=== PATIENT | female | born 1965 | race Two or more races ===

== ENCOUNTER 2019-02-18 05:54 | Inpatient (IN) | payer BC ==
[2019-02-18] VITALS (22 sets, daily range): BP systolic 104–121; BP diastolic 62–81; PULSE 85–110; RESP 12–22; Ht 149.9 cm; Wt 47.7 kg
[~2019-02-18] VITALS: Ht 149.9 cm; Wt 47.7 kg
--- NOTE | 2019-02-18 07:47 | HPN ---
Date/Time of Note Date/Time of Note DATE: 02/18/19 TIME: 07:47 Interval H&P Admission Note Pt. seen H&P reviewed: No system changes JOE SIDDIQI DPM Feb 18, 2019 07:47
--- NOTE | 2019-02-18 07:49 | PREAC ---
Date/Time of Note Date/Time of Note DATE: 02/18/19 TIME: 07:47 Anesthesia Eval and Record Evaluation Time Pre-Procedure Interview DATE: 02/18/19 TIME: 07:47 Age 53 Sex female NPO: 8 hrs Preoperative diagnosis ankle fracture Planned procedure fixator external Past Medical History Past Medical History: Includes Musculoskeletal: Other (hx breast cancer ) Surgery & Anesthesia Issues No known issue Meds Anticoagulation: No Beta Rashard within 24 hr: No Reason Beta Rashard not given: Pt. not on B-Rashard Meds reviewed: Yes Allergies Allergies Reviewed: Yes Labs/Studies Labs Reviewed: Reviewed by anesthesiologist Result Diagram: 02/18/1923 02/18/1923 Laboratory Tests 02/18/19 06:23 test: N/A Pre-procedure Exam Last vitals Vital Signs Date Temp Pulse Resp B/P (MAP) Pulse Ox O2 O2 Flow FiO2 Time Delivery Rate 02/18/19 98.5 85 14 119/81 98 Room Air 06:10 (94) Airway: Adequate mouth opening, Adequate thyromental dist Mallampati: Mallampati IV Teeth: Normal Lung: Normal Heart: Normal ASA Physical Status ASA physical status: 2 Emergency: None Pre-operative Attestations Prior to commencing anesthesia and surgery, the patient was re-evaluated, there was verification of: *The patient's identity *The results of appropriate recent lab work and preoperative vital signs *The above evaluation not changing prior to induction *Anesthetic plan, risk benefits, alternative and complications discussed with patient/family; questions answered; patient/family understands, accepts and wishes to proceed. OZZY BAUGH DO Feb 18, 2019 07:49
[2019-02-18] MEDS ORDERED: HYDROmorphONE 1 MG/5 ML IV SYRINGE IV PRN ×2 (08:00)
[2019-02-18] MEDS ORDERED: PROPOFOL 20 ML ONE (08:06)
[2019-02-18] MEDS ORDERED: MIDAZOLAM 1 MG/ML 2 ML INJ ONE (08:08)
[2019-02-18] MEDS ORDERED: LIDOCAINE 1% (MDV) 20 ML INJ ONE (08:08)
[2019-02-18] MEDS ORDERED: EPINEPHrine 0.1 MG/ML SYG ONE (08:27)
[2019-02-18] MEDS ORDERED: CEFAZOLIN 1 GM INJ ONE (08:29)
[2019-02-18] MEDS ORDERED: ONDANSETRON 4 MG INJ ONE ×2 (08:29→11:14)
[2019-02-18] MEDS ORDERED: DEXAMETHASONE 4 MG/ML 5 ML INJ ONE (08:42)
[2019-02-18] MEDS ORDERED: FAMOTIDINE 20 MG INJ ONE (08:43)
[2019-02-18] MEDS ORDERED: POLYMYXIN/BACITRACIN 1L IRRIG ONE (09:20)
[2019-02-18] MEDS ORDERED: ROPIVACAINE 0.5 % 30 ML VIAL ONE (10:18)
[2019-02-18] MEDS ORDERED: NEOMYC/POLYMYX/BACIT 30 GM OINT ONE (10:23)
[2019-02-18] MEDS ORDERED: ROPIVACAINE 0.2% 20 ML VIAL ONE (10:45)
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
--- NOTE | 2019-02-18 11:07 | PAC ---
Date/Time of Note Date/Time of Note DATE: 02/18/19 TIME: 11:07 Post-Anesthesia Notes Post-Anesthesia Note Last documented vital signs Vital Signs Date Temp Pulse Resp B/P (MAP) Pulse Ox O2 O2 Flow FiO2 Time Delivery Rate 02/18/19 98 81 16 121/62 98 Room Air 1107 Activity: WNL Respiratory function: WNL Cardiovascular function: WNL Mental status: Baseline Pain reasonably controlled: Yes Hydration appropriate: Yes Nausea/Vomiting absent: Yes OZZY BAUGH DO Feb 18, 2019 11:07
[2019-02-18] MEDS ORDERED: ONDANSETRON 4 MG INJ IV PRN ×2 (11:30→12:00)
--- NOTE | 2019-02-18 11:44 | CONS ---
Assessment/Plan Assessment/Plan Hospital Course (Demo Recall) Patient is a female with a significant past medical history of deformed right foot, breast cancer treated with Arimadex and peripheral neuropathy secondary to deformed foot who presents to [facility] for elective right foot surgery. Patient received external fixation and surgical correction of right foot deformity as well as Achilles tendon lengthening. Patient will be kept inpatient for the time being, currently patient states that other than her right foot pain she has absolutely no complaints. Patient denies nausea, vomiting, headache, abdominal pain, chest pain, shortness of breath. Objective Physical exam General: Patient is laying in bed and answers questions appropriately Mentation: Patient is alert and oriented 4, Head: Normocephalic atraumatic Eyes: EOMI, pupils reactive to light Neck: Supple, nontender, midline Respiratory: Clear to auscultation bilaterally Cardiovascular: regular rate, no obvious murmurs Gastrointestinal: non-tender to palpation, bowel sounds heard. Neurological: Moves all extremities spontaneously Skin: Right foot, external fixation, clean Assessment and plan Right foot calcaneal deformity status post external fixation and Achilles tendon healing -Podiatry to manage -External fixation -Due to questionable pus seen on surgery, will start antibiotics, Vanco and cefepime while in house -Pain management History of breast cancer status post bilateral mastectomy, -On Arimidex -Continue as tolerated Disposition -Continue inpatient care for external fixation, continue IV antibiotics for now, podiatry recommendations appreciated. Consultation Date/Type/Reason Admit Date/Time Date/Time of Note DATE: 02/18/19 TIME: 11:43 Past Medical History Medications Current Medications Hydromorphone HCl (Dilaudid) 0.2 mg PACU PRN IV MILD PAIN 1-3; Start 02/18/19 at 08:00; Stop 02/18/19 at 14:00 Hydromorphone HCl (Dilaudid) 0.4 mg PACU PRN IV MOD PAIN 4-6 Last administered on 02/18/19at 11:26; Admin Dose 0.4 MG; Start 02/18/19 at 08:00; Stop 02/18/19 at 14:00 Ondansetron HCl (Zofran Inj) 4 mg PACU ORDER PRN IV NAUSEA/VOMITING Last administered on 02/18/19at 11:26; Admin Dose 4 MG; Start 02/18/19 at 11:30; Stop 02/18/19 at 19:00 IV Flush (NS 3 ml) 3 ml PER PROTOCOL IV ; Start 02/18/19 at 12:00 Ondansetron HCl (Zofran Inj) 4 mg Q6H PRN IV NAUSEA/VOMITING; Start 02/18/19 at 12:00 Acetaminophen (Tylenol Tab) 650 mg Q6H PRN PO .PAIN 1-3 OR TEMP; Start 02/18/19 at 12:00 Oxycodone/ Acetaminophen (Percocet (5/ 325)) 1 tab Q6H PRN PO .PAINS 4-6; Start 02/18/19 at 12:00 Morphine Sulfate (morphine) 4 mg Q4H PRN IV .PAIN 7-10; Start 02/18/19 at 12:00 Docusate Sodium (Colace) 100 mg Q12H PO ; Start 02/18/19 at 12:00; Status UNV Anastrozole (Arimidex) 1 mg DAILY PO ; Start 02/19/19 at 09:00; Status UNV Gabapentin (Neurontin) 300 mg TID PO ; Start 02/18/19 at 13:00 Vancomycin HCl (Vanco Iv Per Pharmacy) VANCOMYCIN PER PHARMACY PER PROTOCOL XX ; Start 02/18/19 at 12:00; Status UNV Cefepime HCl 50 ml @ 100 mls/hr Q12 IVPB ; Start 02/18/19 at 21:00; Status UNV Allergies: Coded Allergies: No Known Allergy (Unverified , 02/18/19) Social History Smoking Status: Never smoker Exam/Review of Systems Exam Vitals Vital Signs Date Temp Pulse Resp B/P (MAP) Pulse Ox O2 O2 Flow FiO2 Time Delivery Rate 02/18/19 102 12 117/68 97 Room Air 11:26 (84) 02/18/19 98.4 11:17 Results Result Diagram: 02/18/19 0623 02/18/19 0623 Results 24hrs Laboratory Tests Test 02/18/19 06:23 White Blood Count 8.4 Red Blood Count 4.48 Hemoglobin 12.6 Hematocrit 38.2 Mean Corpuscular Volume 85.3 Mean Corpuscular Hemoglobin 28.1 L Mean Corpuscular Hemoglobin Concent 33.0 Red Cell Distribution Width 13.1 Platelet Count 296 Mean Platelet Volume 9.9 Immature Granulocytes % 0.400 Neutrophils % 57.1 Lymphocytes % 26.7 Monocytes % 7.9 Eosinophils % 7.4 H Basophils % 0.5 Nucleated Red Blood Cells % 0.0 Immature Granulocytes # 0.030 Neutrophils # 4.8 Lymphocytes # 2.2 Monocytes # 0.7 Eosinophils # 0.6 H Basophils # 0.0 Nucleated Red Blood Cells # 0.0 Prothrombin Time 11.9 Prothrombin Time Ratio 0.9 INR International Normalized Ratio 0.87 Activated Partial Thromboplast Time 28.6 Sodium Level 142 Potassium Level 3.9 Chloride Level 106 Carbon Dioxide Level 26 Anion Gap 10 Blood Urea Nitrogen 14 Creatinine 0.59 Est Glomerular Filtrat Rate mL/min > 60 Glucose Level 100 Calcium Level 9.2 Total Bilirubin 0.4 Direct Bilirubin 0.00 Indirect Bilirubin 0.4 Aspartate Amino Transf (AST/SGOT) 37 Alanine Aminotransferase (ALT/SGPT) 26 Alkaline Phosphatase 108 Total Protein 8.0 Albumin 4.2 Globulin 3.80 H Albumin/Globulin Ratio 1.10 Medications Medication Current Medications Hydromorphone HCl (Dilaudid) 0.2 mg PACU PRN IV MILD PAIN 1-3; Start 02/18/19 at 08:00; Stop 02/18/19 at 14:00 Hydromorphone HCl (Dilaudid) 0.4 mg PACU PRN IV MOD PAIN 4-6 Last administered on 02/18/19at 11:26; Admin Dose 0.4 MG; Start 02/18/19 at 08:00; Stop 02/18/19 at 14:00 Ondansetron HCl (Zofran Inj) 4 mg PACU ORDER PRN IV NAUSEA/VOMITING Last administered on 02/18/19at 11:26; Admin Dose 4 MG; Start 02/18/19 at 11:30; Stop 02/18/19 at 19:00 IV Flush (NS 3 ml) 3 ml PER PROTOCOL IV ; Start 02/18/19 at 12:00 Ondansetron HCl (Zofran Inj) 4 mg Q6H PRN IV NAUSEA/VOMITING; Start 02/18/19 at 12:00 Acetaminophen (Tylenol Tab) 650 mg Q6H PRN PO .PAIN 1-3 OR TEMP; Start 02/18/19 at 12:00 Oxycodone/ Acetaminophen (Percocet (5/ 325)) 1 tab Q6H PRN PO .PAINS 4-6; Start 02/18/19 at 12:00 Morphine Sulfate (morphine) 4 mg Q4H PRN IV .PAIN 7-10; Start 02/18/19 at 12:00 Docusate Sodium (Colace) 100 mg Q12H PO ; Start 02/18/19 at 12:00; Status UNV Anastrozole (Arimidex) 1 mg DAILY PO ; Start 02/19/19 at 09:00; Status UNV Gabapentin (Neurontin) 300 mg TID PO ; Start 02/18/19 at 13:00 Vancomycin HCl (Vanco Iv Per Pharmacy) VANCOMYCIN PER PHARMACY PER PROTOCOL XX ; Start 02/18/19 at 12:00; Status UNV Cefepime HCl 50 ml @ 100 mls/hr Q12 IVPB ; Start 02/18/19 at 21:00; Status UNV ARTUR GARAY Feb 18, 2019 11:44
[2019-02-18] MEDS ORDERED: ACETAMINOPHEN 325 MG TAB PO PRN (12:00)
[2019-02-18] MEDS ORDERED: NACL 0.9% 3 ML SYG IV SCH (12:00)
[2019-02-18] MEDS ORDERED: VANCOMYCIN IV PER PHARMACY XX SCH (12:00)
[2019-02-18] MEDS ORDERED: VANCOMYCIN 1 GM 250 ML IVPB SCH (14:00)
[2019-02-18] MEDS: GABAPENTIN 300 MG CAP PO SCH ×2 (14:06→20:21)
[2019-02-18] MEDS: DOCUSATE SODIUM 100 MG CAP PO SCH ×2 (14:07→20:20)
[2019-02-18] MEDS: morphine 4 MG/ML VIAL IV PRN (19:45)
[2019-02-18] MEDS: CEFEPIME 1GM/50 ML (PMX) 50 ML IVPB SCH (20:21)
[2019-02-19] MEDS: VANCOMYCIN 750 MG (PMX) 250 ML IVPB SCH ×2 (01:31→13:25)
[2019-02-19 02:09] VITALS: BP 104/68; PULSE 82; PULSE 90; RESP 18
[2019-02-19 08:07] VITALS: BP 92/56; PULSE 85; RESP 18
[2019-02-19] MEDS: DOCUSATE SODIUM 100 MG CAP PO SCH ×2 (08:59→21:38)
[2019-02-19] MEDS: GABAPENTIN 300 MG CAP PO SCH ×3 (08:59→21:38)
[2019-02-19] MEDS: CEFEPIME 1GM/50 ML (PMX) 50 ML IVPB SCH ×2 (09:00→21:38)
[2019-02-19] MEDS: ANASTROZOLE 1 MG TAB PO SCH (09:20)
--- NOTE | 2019-02-19 11:21 | PN ---
Date/Time of Note Date/Time of Note DATE: 02/19/19 TIME: 11:20 Objective Vitals Vital Signs Date Temp Pulse Resp B/P (MAP) Pulse Ox O2 O2 Flow FiO2 Time Delivery Rate 02/19/19 97.9 85 18 92/56 (68) 99 08:07 02/18/19 Room Air 12:01 Intake and Output 02/18/19 02/18/19 02/19/19 1515:00 23:00 07:00 IntakeIntake Total 2000 ml 1140 ml OutputOutput Total 605 ml 500 ml BalanceBalance 1395 ml 640 ml Results Result Diagram: 02/19/19 0543 02/19/19 0543 Medications Medications Current Medications IV Flush (NS 3 ml) 3 ml PER PROTOCOL IV ; Start 02/18/19 at 12:00 Ondansetron HCl (Zofran Inj) 4 mg Q6H PRN IV NAUSEA/VOMITING; Start 02/18/19 at 12:00 Acetaminophen (Tylenol Tab) 650 mg Q6H PRN PO .PAIN 1-3 OR TEMP; Start 02/18/19 at 12:00 Oxycodone/ Acetaminophen (Percocet (5/ 325)) 1 tab Q6H PRN PO .PAINS 4-6; Start 02/18/19 at 12:00 Morphine Sulfate (morphine) 4 mg Q4H PRN IV .PAIN 7-10 Last administered on 02/18/19at 19:45; Admin Dose 4 MG; Start 02/18/19 at 12:00 Docusate Sodium (Colace) 100 mg Q12 PO Last administered on 02/19/19at 08:59; Admin Dose 100 MG; Start 02/18/19 at 12:00 Anastrozole (Arimidex) 1 mg DAILY PO Last administered on 02/19/19at 09:20; Admin Dose 1 MG; Start 02/19/19 at 09:00 Gabapentin (Neurontin) 300 mg TID PO Last administered on 02/19/19at 08:59; Admin Dose 300 MG; Start 02/18/19 at 13:00 Vancomycin HCl (Vanco Iv Per Pharmacy) VANCOMYCIN PER PHARMACY PER PROTOCOL XX ; Start 02/18/19 at 12:00 Cefepime HCl 50 ml @ 100 mls/hr Q12 IVPB Last administered on 02/19/19at 09:00; Admin Dose 100 MLS/HR; Start 02/18/19 at 21:00 Vancomycin/Sodium Chloride 250 ml @ 125 mls/hr Q12H IVPB Last administered on 02/19/19at 01:31; Admin Dose 125 MLS/HR; Start 02/19/19 at 02:00 Miscellaneous Information (*Rx Drug Level Order Reminder*) VANCO TROUGH @ 0,100 ON... 0100 ONCE XX ; Start 02/20/19 at 01:00; Stop 02/20/19 at 01:01 VTE Prophylaxis Risk score (from [facility])>0 risk: 7 SCD applied (from [facility]): Yes Lines/Catheters IV Catheter Type: Le[place] in Place: No Assessment/Plan Hospital Course Subjective No acute complaints, has some foot surgical site pain otherwise feels well Objective Physical exam General: Patient is laying in bed and answers questions appropriately Mentation: Patient is alert and oriented 4, Head: Normocephalic atraumatic Eyes: EOMI, pupils reactive to light Neck: Supple, nontender, midline Respiratory: Clear to auscultation bilaterally Cardiovascular: regular rate, no obvious murmurs Gastrointestinal: non-tender to palpation, bowel sounds heard. Neurological: Moves all extremities spontaneously Skin: Right foot, external fixation, clean Assessment and plan Right foot calcaneal deformity status post external fixation and Achilles tendon healing -Podiatry to manage -External fixation -Due to questionable pus seen on surgery, will start antibiotics, Vanco and cefepime while in house -Pain management Leukocytosis -Likely secondary to inflammation secondary to surgery, no other signs of active infection, continue IV antibiotics. History of breast cancer status post bilateral mastectomy, -On Arimidex -Continue as tolerated Disposition -Continue inpatient care for external fixation, continue IV antibiotics for now, podiatry recommendations appreciated. ARTUR GARAY Feb 19, 2019 11:21
[2019-02-19] MEDS: OXYCODONE/ACETAMINOPHEN (5/325) TAB PO PRN (13:32)
[2019-02-19] MEDS: morphine 4 MG/ML VIAL IV PRN ×2 (15:35→20:00)
[2019-02-19 16:47] VITALS: BP 106/71; PULSE 67; RESP 18
[2019-02-19 18:26] VITALS: BP 121/84; PULSE 87; RESP 18
[2019-02-19 20:16] VITALS: BP 137/73; PULSE 83; RESP 16
[2019-02-20] MEDS: morphine 4 MG/ML VIAL IV PRN ×2 (01:27→20:41)
[2019-02-20 02:03] VITALS: BP 139/70; PULSE 84; RESP 18
[2019-02-20] MEDS: VANCOMYCIN 750 MG (PMX) 250 ML IVPB SCH (02:17)
[2019-02-20 07:46] VITALS: BP 145/67; PULSE 87; RESP 18
[2019-02-20] MEDS: CEFEPIME 1GM/50 ML (PMX) 50 ML IVPB SCH (09:30)
[2019-02-20] MEDS: GABAPENTIN 300 MG CAP PO SCH ×3 (09:41→20:41)
[2019-02-20] MEDS: DOCUSATE SODIUM 100 MG CAP PO SCH ×2 (09:41→20:41)
[2019-02-20] MEDS: ANASTROZOLE 1 MG TAB PO SCH (09:43)
[2019-02-20] MEDS: OXYCODONE/ACETAMINOPHEN (5/325) TAB PO PRN ×2 (09:44→15:08)
[2019-02-20] MEDS ORDERED: VANCOMYCIN 750 MG (PMX) 250 ML IVPB SCH (10:00)
[2019-02-20] MEDS: CEFTRIAXONE 1 GM/50 ML (PMX) 50 ML IVPB SCH (13:33)
[2019-02-20 13:49] VITALS: BP 138/76; PULSE 86; RESP 18
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
[2019-02-20 20:24] VITALS: BP 139/81; PULSE 96; RESP 18
[2019-02-21 02:13] VITALS: BP 123/73; PULSE 103; RESP 18
[2019-02-21] MEDS: OXYCODONE/ACETAMINOPHEN (5/325) TAB PO PRN ×2 (06:48→12:49)
[2019-02-21 07:55] VITALS: BP 130/67; PULSE 88; RESP 18
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
[2019-02-21] MEDS: GABAPENTIN 300 MG CAP PO SCH ×3 (09:19→22:03)
[2019-02-21] MEDS: DOCUSATE SODIUM 100 MG CAP PO SCH ×2 (09:19→22:03)
[2019-02-21] MEDS: ANASTROZOLE 1 MG TAB PO SCH (09:21)
[2019-02-21] MEDS: CEFTRIAXONE 1 GM/50 ML (PMX) 50 ML IVPB SCH (14:12)
[2019-02-21 14:14] VITALS: BP 138/78; PULSE 88; RESP 18
[2019-02-21] MEDS: morphine 4 MG/ML VIAL IV PRN (19:30)
[2019-02-21 20:30] VITALS: BP 137/99; PULSE 91; RESP 18
[2019-02-22 02:45] VITALS: BP 132/90; PULSE 89; RESP 18
[2019-02-22] MEDS: OXYCODONE/ACETAMINOPHEN (5/325) TAB PO PRN ×3 (05:20→18:07)
[2019-02-22 07:53] VITALS: BP 138/66; PULSE 88; RESP 18
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
[2019-02-22] MEDS: GABAPENTIN 300 MG CAP PO SCH ×2 (09:02→12:34)
[2019-02-22] MEDS: DOCUSATE SODIUM 100 MG CAP PO SCH (09:02)
[2019-02-22] MEDS: ANASTROZOLE 1 MG TAB PO SCH (09:03)
[2019-02-22] MEDS ORDERED: POLYETHYLENE GLYCOL 17 GM PACKET PO PRN (11:00)
[2019-02-22] MEDS ORDERED: BISACODYL (EC) 5 MG TAB PO PRN (11:00)
[2019-02-22] MEDS ORDERED: POLY17PO6 PO (12:22)
[2019-02-22] MEDS ORDERED: SENN-115 PO (12:22)
[2019-02-22] MEDS ORDERED: ANAS1TAB PO (12:22)
[2019-02-22] MEDS ORDERED: GABA300C16 PO (12:22)
[2019-02-22] MEDS ORDERED: OXYC-438 PO (12:22)
--- NOTE | 2019-02-22 12:25 | PDOCDIS ---
Discharge Instructions DIAGNOSIS Discharge Diagnosis 1. Right foot calcaneal deformity status post external fixation and Achilles tendon healing 2. History of breast cancer status post bilateral mastectomy CONDITION [id number] Patient Condition: [id number] Stable HOME CARE INSTRUCTIONS: [id number] Diet Instructions: [id number] Low Fat /Cholesterol ACTIVITY: [id number] Activity Restrictions: [id number] Weight Bearing (no weight bearing on right foot) FOLLOW UP/APPOINTMENTS Follow-up Plan 1. Follow up with your primary care physician in 1-[address] Guevara office to set up a follow up appointment 3. Take Percocet as needed for pain. If you are experiencing constipation while on this medication, increase fiber in your diet. Take Miralax daily and if still no bowel movements occur, take Senna S. 4. Do not place any weight on your right foot as per instructions from Dr. Choi 5. If experiencing any concerning issues, please call Dr. Choi or go to your closest emergency department ASIF DOVE MD Feb 22, 2019 12:25
[2019-02-22 14:10] VITALS: BP 132/79; PULSE 99; RESP 18
[2019-02-22] MEDS: CEFTRIAXONE 1 GM/50 ML (PMX) 50 ML IVPB SCH (14:19)
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
== END 2019-02-22 18:20 | disposition home or self-care (01) | DRG 505 ==
LOC: SDS 05:54 → EDSTATUS 09:30 → REC 11:34 → SDS 11:34 → 2NE 12:25 → MS1 02-19 18:18
PROVIDERS: ADMIT Internal Medicine; ATTEND Internal Medicine
PROC: 2W3QXYZ Immobilization of Right Lower Leg using Other Device (ICD-10-PCS; 2019-02-18)
PROC: 0L8N0ZZ Division of Right Lower Leg Tendon, Open Approach (ICD-10-PCS; principal; 2019-02-18 07:30)
DX: Q66.0 Congenital talipes equinovarus (principal); M67.01 Short Achilles tendon (acquired), right ankle; Z85.3 Personal history of malignant neoplasm of breast; D72.829 Elevated white blood cell count, unspecified; E11.9 Type 2 diabetes mellitus without complications; G62.9 Polyneuropathy, unspecified; Z90.13 Acquired absence of bilateral breasts and nipples
CPT/HCPCS: 73590; 73630; 80048; 80053; 80202; 83036; 83735; 84100; 85025; 85610; 85730; 87040; 97110; 97116; 97162; 97530; J0171; J0690; J0692; J0696; J1100; J1170; J2250; J2270; J2405; J2795; J3010; J3370

== ENCOUNTER 2019-04-21 12:16 | Day surgery (SDC) | payer BC ==
[2019-04-21] VITALS (12 sets, daily range): BP systolic 109–121; BP diastolic 60–86; PULSE 77–105; RESP 12–29; Ht 149.9 cm; Wt 50.1 kg
[~2019-04-21] VITALS: Ht 149.9 cm; Wt 50.1 kg
[~2019-04-21 12:16] MED LIST: ANAS1TAB PO; GABA300C16 PO; OXYC-438 PO; POLY17PO6 PO; SENN-115 PO
[2019-04-21] MEDS ORDERED: GABA300C16 PO (12:46)
[2019-04-21] MEDS ORDERED: ANAS1TAB PO (12:46)
[2019-04-21] MEDS ORDERED: CEFAZOLIN 2 GM/50 ML (PMX) 50 ML IVPB ONE (13:00)
[2019-04-21] MEDS ORDERED: LACTATED RINGER'S 1,000 ML IV SCH (13:30)
[2019-04-21] MEDS ORDERED: POLYMYXIN/BACITRACIN 1L IRRIG ONE (14:38)
--- NOTE | 2019-04-21 14:42 | PREAC ---
Date/Time of Note Date/Time of Note DATE: 04/21/19 TIME: 14:39 Anesthesia Eval and Record Evaluation Time Pre-Procedure Interview DATE: 04/21/19 TIME: 14:39 Age 53 Sex female NPO: 8 hrs Preoperative diagnosis ex fix Planned procedure removal of ex fix with ORIF Past Medical History Past Medical History: Includes Recreational drugs: Other (hx of breast cancer ) Surgery & Anesthesia Issues No known issue Meds Anticoagulation: No Beta Rashard within 24 hr: No Reason Beta Rashard not given: Pt. not on B-Rashard Reported Medications Gabapentin* (Gabapentin*) 300 Mg Capsule, 300 MG PO BID, #60 CAP 04/21/19 Anastrozole* (Arimidex*) 1 Mg Tablet, 1 MG PO DAILY, #30 TAB 04/21/19 Discontinued Scripts Sennosides/Docusate Sodium (Senna S Tablet) 1 Each Tablet, 1 EACH PO BID PRN for CONSTIPATION for 30 Days, #60 TAB 6 Refills Prov:ASIF DOVE MD 02/22/19 Gabapentin* (Gabapentin*) 300 Mg Capsule, 300 MG PO TID for 30 Days, #90 CAP Prov:ASIF DOVE MD 02/22/19 Polyethylene Glycol* (Miralax*) 17 Gm Powd.pack, 17 GM PO DAILY PRN for CONSTIPATION for 30 Days, #30 PACKET 6 Refills Prov:ASIF DOVE MD 02/22/19 Oxycodone HCl/Acetaminophen (Oxycodone-Acetaminophen 5-325) 1 Each Tablet, 1 TAB PO Q6H PRN for .PAINS 4-6 for 7 Days, #28 TAB Prov:ASIF DOVE MD 02/22/19 Anastrozole* (Arimidex*) 1 Mg Tablet, 1 MG PO DAILY for 30 Days, #30 TAB Prov:ASIF DOVE MD 02/22/19 Current Medications Lactated Ringer's 1,000 ml @ 25 mls/hr Q24H IV ; Start 04/21/19 at 13:30 Meds reviewed: Yes Allergies Coded Allergies: No Known Allergy (Unverified , 04/21/19) Allergies Reviewed: Yes Labs/Studies Labs Reviewed: Reviewed by anesthesiologist test: N/A Pre-procedure Exam Last vitals Vital Signs Date Temp Pulse Resp B/P (MAP) Pulse Ox O2 O2 Flow FiO2 Time Delivery Rate 04/21/19 98.9 105 16 121/83 16 Room Air 12:57 (96) Airway: Adequate mouth opening, Adequate thyromental dist Mallampati: Mallampati III Teeth: Normal Lung: Normal Heart: Normal ASA Physical Status ASA physical status: 2 Emergency: None Pre-operative Attestations Prior to commencing anesthesia and surgery, the patient was re-evaluated, there was verification of: *The patient's identity *The results of appropriate recent lab work and preoperative vital signs *The above evaluation not changing prior to induction *Anesthetic plan, risk benefits, alternative and complications discussed with patient/family; questions answered; patient/family understands, accepts and wishes to proceed. OZZY BAUGH DO April 21, 2019 14:42
[2019-04-21] MEDS ORDERED: MIDAZOLAM 1 MG/ML 2 ML INJ ONE (14:44)
[2019-04-21] MEDS ORDERED: LIDOCAINE 1% (MDV) 20 ML INJ ONE (14:47)
[2019-04-21] MEDS ORDERED: ROCURONIUM 50 MG INJ ONE ×2 (14:47→16:30)
[2019-04-21] MEDS ORDERED: PROPOFOL 20 ML ONE (14:47)
[2019-04-21] MEDS ORDERED: CEFAZOLIN 1 GM INJ ONE (14:50)
[2019-04-21] MEDS ORDERED: ROPIVACAINE 0.5 % 30 ML VIAL ONE (14:51)
[2019-04-21] MEDS ORDERED: METOCLOPRAMIDE 10 MG INJ ONE (16:35)
[2019-04-21] MEDS ORDERED: NEOSTIGMINE 3 MG/3 ML SYRINGE ONE (16:35)
[2019-04-21] MEDS ORDERED: ONDANSETRON 4 MG INJ ONE ×2 (16:35→17:01)
[2019-04-21] MEDS ORDERED: GLYCOPYRROLATE 0.4 MG INJ ONE (16:35)
--- NOTE | 2019-04-21 17:25 | HPN ---
Date/Time of Note Date/Time of Note DATE: 04/21/19 TIME: 17:25 Interval H&P Admission Note Pt. seen H&P reviewed: No system changes JOE SIDDIQI DPM April 21, 2019 17:25
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
[2019-04-21] MEDS ORDERED: LABETALOL HCL 20MG INJ IV PRN (17:30)
[2019-04-21] MEDS ORDERED: MIDAZOLAM 1 MG/ML 2 ML INJ IV PRN (17:30)
[2019-04-21] MEDS ORDERED: OXYCODONE/ACETAMINOPHEN (5/325) TAB PO PRN ×2 (17:30)
[2019-04-21] MEDS ORDERED: FENTAnyl 50 MCG/ML VIAL IV PRN ×3 (17:30)
[2019-04-21] MEDS ORDERED: DIPHENHYDRAMINE 50 MG INJ IV PRN (17:30)
[2019-04-21] MEDS ORDERED: METOCLOPRAMIDE 10 MG INJ IV PRN (17:30)
[2019-04-21] MEDS ORDERED: ONDANSETRON 4 MG INJ IV PRN (17:30)
[2019-04-21] MEDS ORDERED: EPHEDrine 25 MG/5 ML SYG IV PRN (17:30)
[2019-04-21] MEDS ORDERED: HYDROmorphONE 1 MG/5 ML IV SYRINGE IV PRN ×3 (17:30)
[2019-04-21] MEDS ORDERED: hydrALAzine 20 MG INJ IV PRN (17:30)
[2019-04-21] MEDS ORDERED: MEPERIDINE 25 MG INJ IV PRN (17:30)
--- NOTE | 2019-04-21 18:07 | PAC ---
Date/Time of Note Date/Time of Note DATE: 04/21/19 TIME: 18:06 Post-Anesthesia Notes Post-Anesthesia Note Last documented vital signs Vital Signs Date Temp Pulse Resp B/P (MAP) Pulse Ox O2 O2 Flow FiO2 Time Delivery Rate 04/21/19 90 17 118/74 Room Air 17:56 (89) Nasal Cannula 04/21/19 98 17:51 04/21/19 2.0 17:36 04/21/19 98.2 16:59 Activity: WNL Respiratory function: WNL Cardiovascular function: WNL Mental status: Baseline Pain reasonably controlled: Yes Hydration appropriate: Yes Nausea/Vomiting absent: Yes Comments BT: 98.6 LEENA GARAY MD April 21, 2019 18:07
== END 2019-04-21 18:40 | disposition home or self-care (01) ==
LOC: SDS 12:16
PROVIDERS: ATTEND Podiatrist Foot & Ankle Surgery
DX: S92.001P Unspecified fracture of right calcaneus, subsequent encounter for fracture with malunion (principal); V09.9XXD Pedestrian injured in unspecified transport accident, subsequent encounter; M21.171 Varus deformity, not elsewhere classified, right ankle
CPT/HCPCS: 20694; 28300; 73630; 84703; C1713; J0690; J2250; J2405; J2710; J2765; J2795; J3010; Z7512; Z7610